=== PATIENT | male | born 1955 | race Caucasian/White ===

== ENCOUNTER 2018-08-08 12:58 | Outpatient (CLI) | payer BC ==
--- NOTE | 2018-08-08 14:45 | RAD ---
CHEST PA AND LATERAL: History: 63-year-old male with history of follow up pneumonia, patient had pneumonia in June. Comparison: 06-21-11 FINDINGS: Minimal right sided pleural thickening. Heart size is within normal limits. The lungs are clear. NO p neumonia, edema, or pleural effusion. IMPRESSION: Minimal right sided pleural thickening. No evidence of pneumonia or other acute process. Stable from 06-21-11. POS: [facility]
== END 2018-08-08 12:59 | disposition home or self-care (01) ==
LOC: BICRAD 12:58
PROVIDERS: ATTEND Internal Medicine
DX: J18.9 Pneumonia, unspecified organism (principal); J92.9 Pleural plaque without asbestos; Z12.5 Encounter for screening for malignant neoplasm of prostate; I10 Essential (primary) hypertension; E78.5 Hyperlipidemia, unspecified; Z79.899 Other long term (current) drug therapy
CPT/HCPCS: 36415; 71046; 80053; 80061; 81003; 84443; 85025; G0103

== ENCOUNTER 2023-09-11 11:26 | Inpatient (IN) | payer BC, MEDICARE ==
[2023-09-11 12:10] LABS: #Eosinphils 0.2 thou/uL (0.0-0.7); #Monocytes 0.7 thou/uL (0.11-0.59); #Neutrophils 6.1 thou/uL (1.40-6.50); %Basophils 0.3 % (0.0-1.0); %Eosinophils 1.9 % (0.0-10.0); %Lymphocytes 9.7 % (21.0-51.0); %Monocytes 8.6 % (0.0-10.0); %Neutrophils 78.7 % (42.0-75.0); Hematocrit 24.7 % (42.0-52.0); Hemoglobin 7.6 g/dL (14.0-18.0); Mean Corpuscular HGB CONC 30.8 g/dL (32.0-36.0); Mean Corpuscular Hemoglobin 27.9 pg (27.0-31.0); Mean Corpuscular Volume 90.8 fl (78.0-98.0); Mean Platelet Volume 9.7 fL (7.4-10.4); Platelet Count 241 10x3/uL (130-400); RBC Distribution Width 16.6 % (11.5-14.5); Red Blood Cell (RBC) Count 2.72 mill/uL (4.70-6.10); White Blood Cell (WBC) Count 7.8 10x3/uL (4.8-10.8)
[2023-09-11 12:30] LABS: ALT (SGPT) 15 U/L (8-55); AST (SGOT) 25 U/L (5-34); Albumin 3.9 g/dL (3.4-4.8); Alkaline Phosphatase 185 U/L (40-110); Anion Gap 14 mmol/L (10-20); BUN (Urea Nitrogen) 18 mg/dL (8.4-25.7); Bilirubin, Total 1.3 mg/dL (0.2-1.2); Calc. Creatinine Clearance 0 mL/min (70-130); Calcium 8.9 mg/dL (7.8-10.44); Carbon Dioxide 25 mmol/L (23-31); Chloride 93 mmol/L (98-107); Estimated GFR 42; Globulin 3.2 g/dL (2.4-3.5); Glucose 183 mg/dL (80-115); Protein, Total 7.1 g/dL (5.8-8.1); Sodium 128 mmol/L (136-145); Troponin I Less than 0.010 ng/mL (< 0.028)
[2023-09-11] MEDS ORDERED: Acetaminophen 325 MG TAB PO PRN (14:05)
[2023-09-11] MEDS ORDERED: Furosemide 20 MG (2 mL) VIAL ONE (14:16)
[2023-09-11 15:48] LABS: Troponin I Less than 0.010 ng/mL (< 0.028)
[2023-09-11 23:15] LABS: Troponin I 0.025 ng/mL (< 0.028)
[2023-09-12 00:41] VITALS: BMI 42.9
[2023-09-12] MEDS: Furosemide 40 MG (4 mL) VIAL SLOW IVP SCH ×2 (05:15→15:02)
[2023-09-12 06:38] LABS: #Eosinphils 0.2 thou/uL (0.0-0.7); #Monocytes 0.8 thou/uL (0.11-0.59); #Neutrophils 6.1 thou/uL (1.40-6.50); %Basophils 0.4 % (0.0-1.0); %Lymphocytes 10.7 % (21.0-51.0); %Monocytes 10.2 % (0.0-10.0); Hematocrit 24.2 % (42.0-52.0); Hemoglobin 7.3 g/dL (14.0-18.0); Mean Corpuscular HGB CONC 30.2 g/dL (32.0-36.0); Mean Corpuscular Hemoglobin 26.9 pg (27.0-31.0); Mean Corpuscular Volume 89.3 fl (78.0-98.0); Mean Platelet Volume 9.6 fL (7.4-10.4); Platelet Count 276 10x3/uL (130-400); RBC Distribution Width 16.9 % (11.5-14.5); Red Blood Cell (RBC) Count 2.71 mill/uL (4.70-6.10); White Blood Cell (WBC) Count 8.1 10x3/uL (4.8-10.8)
[2023-09-12 06:58] LABS: Anion Gap 14 mmol/L (10-20); BUN (Urea Nitrogen) 17 mg/dL (8.4-25.7); Calc. Creatinine Clearance 88 mL/min (70-130); Calcium 9.2 mg/dL (7.8-10.44); Carbon Dioxide 29 mmol/L (23-31); Chloride 96 mmol/L (98-107); Estimated GFR 47; Glucose 123 mg/dL (80-115); Potassium 3.9 mmol/L (3.5-5.1); Sodium 135 mmol/L (136-145)
[2023-09-12] MEDS ORDERED: Spironolactone 25 MG TAB PO SCH (09:15)
[2023-09-12] MEDS: Empagliflozin 10 MG TAB PO SCH (10:19)
[2023-09-12] MEDS: Bisacodyl 5 MG TAB PO PRN (10:25)
[2023-09-12] MEDS ORDERED: Potassium Chloride 20 MEQ TAB PO SCH (10:45)
[2023-09-12 13:42] LABS: Iron 19 ug/dL (65-175); Iron Binding Capacity, Total 379 mcg/dL (261-462)
[2023-09-12] MEDS ORDERED: Iron Sucrose Complex 200 MG in Sodium Chloride 0.9% 100 ML IVPB SCH (19:00)
[2023-09-12] MEDS ORDERED: Iron, Sodium Ferric Gluconate 250 MG in Sodium Chloride 0.9% 250 ML 250 ML IVPB SCH ×2 (19:00→21:45)
[2023-09-12] MEDS ORDERED: diphenhydrAMINE 30 GM TUBE TOP PRN (19:13)
[2023-09-12] MEDS: Folic Acid 1 MG TAB PO SCH (20:13)
[2023-09-12] MEDS: Cyanocobalamin (Vitamin B-12) 1,000 MCG TAB PO SCH (20:13)
[2023-09-13] MEDS ORDERED: Furosemide 40 MG (4 mL) VIAL SLOW IVP SCH (07:45)
[2023-09-13 07:52] LABS: #Eosinphils 0.3 thou/uL (0.0-0.7); #Neutrophils 4.9 thou/uL (1.40-6.50); %Basophils 0.3 % (0.0-1.0); %Eosinophils 3.8 % (0.0-10.0); %Lymphocytes 11.5 % (21.0-51.0); %Monocytes 13.5 % (0.0-10.0); %Neutrophils 69.9 % (42.0-75.0); Hematocrit 25.1 % (42.0-52.0); Hemoglobin 7.8 g/dL (14.0-18.0); Mean Corpuscular HGB CONC 31.1 g/dL (32.0-36.0); Mean Corpuscular Hemoglobin 27.7 pg (27.0-31.0); Platelet Count 245 10x3/uL (130-400); RBC Distribution Width 16.8 % (11.5-14.5); Red Blood Cell (RBC) Count 2.82 mill/uL (4.70-6.10); White Blood Cell (WBC) Count 7.1 10x3/uL (4.8-10.8)
[2023-09-13 08:12] LABS: ALT (SGPT) 20 U/L (8-55); AST (SGOT) 59 U/L (5-34); Albumin 3.5 g/dL (3.4-4.8); Alkaline Phosphatase 159 U/L (40-110); Anion Gap 13 mmol/L (10-20); BUN (Urea Nitrogen) 16 mg/dL (8.4-25.7); Bilirubin, Total 1.3 mg/dL (0.2-1.2); Calc. Creatinine Clearance 90 mL/min (70-130); Carbon Dioxide 28 mmol/L (23-31); Chloride 98 mmol/L (98-107); Estimated GFR 49; Glucose 116 mg/dL (80-115); Potassium 3.5 mmol/L (3.5-5.1); Protein, Total 6.5 g/dL (5.8-8.1); Sodium 135 mmol/L (136-145)
[2023-09-13] MEDS: Spironolactone 25 MG TAB PO SCH (10:49)
[2023-09-13] MEDS: Metolazone 5 MG TAB PO SCH (10:50)
[2023-09-13] MEDS: Empagliflozin 10 MG TAB PO SCH (10:50)
[2023-09-13] MEDS: Furosemide 40 MG (4 mL) VIAL SLOW IVP SCH (14:02)
[2023-09-13] MEDS ORDERED: GoLYTELY 4,000 ml Bottle PO SCH (15:00)
[2023-09-13] MEDS: Cyanocobalamin (Vitamin B-12) 1,000 MCG TAB PO SCH (21:08)
[2023-09-13] MEDS: Folic Acid 1 MG TAB PO SCH (21:08)
[2023-09-14] MEDS: Furosemide 40 MG (4 mL) VIAL SLOW IVP SCH ×3 (04:24→13:11)
[2023-09-14] MEDS ORDERED: Potassium Chloride 20 MEQ TAB PO SCH (07:30)
[2023-09-14] MEDS ORDERED: PROPOFOL 20 ML ONE (08:41)
[2023-09-14] MEDS ORDERED: Ketamine In 0.9 % NaCl 50 MG/5 ML SYRINGE ONE (08:41)
[2023-09-14] MEDS ORDERED: PHENYLEPHRINE-NS 100 MCG/ML 10 ML SYRINGE ONE ×2 (08:49→09:05)
[2023-09-14] MEDS ORDERED: FLU VACC QS2023(65UP)/MF59C/PF 60 MCG/0.5 ML SYRINGE IM ONE (09:00)
[2023-09-14] MEDS ORDERED: Ondansetron HCl/PF 4 MG/2 ML Vial IVP PRN (09:40)
[2023-09-14] MEDS ORDERED: Promethazine HCl 25 MG/ML VIAL IM PRN (09:40)
[2023-09-14] MEDS: Metolazone 5 MG TAB PO SCH (10:33)
[2023-09-14] MEDS: Spironolactone 25 MG TAB PO SCH (10:33)
[2023-09-14] MEDS: Empagliflozin 10 MG TAB PO SCH (10:34)
[2023-09-14] MEDS ORDERED: Iron, Sodium Ferric Gluconate 250 MG in Sodium Chloride 0.9% 250 ML 250 ML IVPB SCH (11:00)
[2023-09-14 11:13] LABS: #Eosinphils 0.2 thou/uL (0.0-0.7); #Monocytes 0.7 thou/uL (0.11-0.59); #Neutrophils 4.1 thou/uL (1.40-6.50); %Basophils 0.4 % (0.0-1.0); %Eosinophils 3.9 % (0.0-10.0); %Monocytes 11.6 % (0.0-10.0); %Neutrophils 71.2 % (42.0-75.0); Hematocrit 27.4 % (42.0-52.0); Hemoglobin 8.5 g/dL (14.0-18.0); Mean Corpuscular Hemoglobin 27.6 pg (27.0-31.0); Mean Platelet Volume 9.3 fL (7.4-10.4); Platelet Count 260 10x3/uL (130-400); RBC Distribution Width 16.9 % (11.5-14.5); Red Blood Cell (RBC) Count 3.08 mill/uL (4.70-6.10); White Blood Cell (WBC) Count 5.7 10x3/uL (4.8-10.8)
[2023-09-14 11:32] LABS: Anion Gap 14 mmol/L (10-20); BUN (Urea Nitrogen) 14 mg/dL (8.4-25.7); Calc. Creatinine Clearance 89 mL/min (70-130); Calcium 9.4 mg/dL (7.8-10.44); Carbon Dioxide 32 mmol/L (23-31); Chloride 91 mmol/L (98-107); Estimated GFR 50; Glucose 154 mg/dL (80-115); Potassium 3.5 mmol/L (3.5-5.1); Sodium 133 mmol/L (136-145)
[2023-09-14 11:34] LABS: Magnesium 1.9 mg/dL (1.6-2.6)
[2023-09-14] MEDS: Potassium Chloride 20 MEQ TAB PO SCH ×2 (12:07→17:05)
[2023-09-14] MEDS: Thiamine 100 MG TAB PO SCH (20:01)
[2023-09-14] MEDS: Multivit, Therapeutic 1 TAB PO SCH (20:01)
[2023-09-14] MEDS: Folic Acid 1 MG TAB PO SCH (20:01)
[2023-09-14] MEDS: Cyanocobalamin (Vitamin B-12) 1,000 MCG TAB PO SCH (20:12)
[2023-09-15 04:44] LABS: #Eosinphils 0.3 thou/uL (0.0-0.7); #Monocytes 0.9 thou/uL (0.11-0.59); #Neutrophils 4.4 thou/uL (1.40-6.50); %Basophils 0.3 % (0.0-1.0); %Eosinophils 4.3 % (0.0-10.0); %Lymphocytes 13.2 % (21.0-51.0); %Monocytes 13.3 % (0.0-10.0); Hematocrit 26.2 % (42.0-52.0); Hemoglobin 8.2 g/dL (14.0-18.0); Mean Corpuscular HGB CONC 31.3 g/dL (32.0-36.0); Mean Corpuscular Hemoglobin 27.7 pg (27.0-31.0); Mean Corpuscular Volume 88.5 fl (78.0-98.0); Mean Platelet Volume 9.2 fL (7.4-10.4); Platelet Count 273 10x3/uL (130-400); RBC Distribution Width 17.3 % (11.5-14.5); Red Blood Cell (RBC) Count 2.96 mill/uL (4.70-6.10); White Blood Cell (WBC) Count 6.5 10x3/uL (4.8-10.8)
[2023-09-15] MEDS: Furosemide 40 MG (4 mL) VIAL SLOW IVP SCH ×2 (04:58→15:50)
[2023-09-15 05:07] LABS: ALT (SGPT) 20 U/L (8-55); AST (SGOT) 42 U/L (5-34); Albumin 3.5 g/dL (3.4-4.8); Alkaline Phosphatase 158 U/L (40-110); Anion Gap 14 mmol/L (10-20); BUN (Urea Nitrogen) 17 mg/dL (8.4-25.7); Calc. Creatinine Clearance 80 mL/min (70-130); Calcium 9.4 mg/dL (7.8-10.44); Carbon Dioxide 32 mmol/L (23-31); Chloride 90 mmol/L (98-107); Estimated GFR 45; Glucose 116 mg/dL (80-115); Potassium 3.4 mmol/L (3.5-5.1); Protein, Total 6.5 g/dL (5.8-8.1); Sodium 133 mmol/L (136-145)
[2023-09-15] MEDS ORDERED: FLU VACC QS2023(65UP)/MF59C/PF 60 MCG/0.5 ML SYRINGE IM ONE (09:00)
[2023-09-15] MEDS: Potassium Chloride 20 MEQ TAB PO SCH ×3 (09:24→18:41)
[2023-09-15] MEDS: Empagliflozin 10 MG TAB PO SCH (09:24)
[2023-09-15] MEDS: Spironolactone 25 MG TAB PO SCH (09:24)
[2023-09-15] MEDS: Metolazone 5 MG TAB PO SCH (09:24)
[2023-09-15] MEDS: Cyanocobalamin (Vitamin B-12) 1,000 MCG TAB PO SCH (20:36)
[2023-09-15] MEDS: Thiamine 100 MG TAB PO SCH (20:36)
[2023-09-15] MEDS: Multivit, Therapeutic 1 TAB PO SCH (20:36)
[2023-09-15] MEDS: Folic Acid 1 MG TAB PO SCH (20:36)
[2023-09-16 04:56] LABS: #Eosinphils 0.3 thou/uL (0.0-0.7); #Neutrophils 5.2 thou/uL (1.40-6.50); %Basophils 0.3 % (0.0-1.0); %Eosinophils 3.7 % (0.0-10.0); %Lymphocytes 11.2 % (21.0-51.0); %Monocytes 13.4 % (0.0-10.0); %Neutrophils 70.6 % (42.0-75.0); Hematocrit 27.3 % (42.0-52.0); Hemoglobin 8.5 g/dL (14.0-18.0); Mean Corpuscular HGB CONC 31.1 g/dL (32.0-36.0); Mean Corpuscular Hemoglobin 27.8 pg (27.0-31.0); Mean Corpuscular Volume 89.2 fl (78.0-98.0); Mean Platelet Volume 9.3 fL (7.4-10.4); Platelet Count 301 10x3/uL (130-400); RBC Distribution Width 17.9 % (11.5-14.5); Red Blood Cell (RBC) Count 3.06 mill/uL (4.70-6.10); White Blood Cell (WBC) Count 7.3 10x3/uL (4.8-10.8)
[2023-09-16 05:21] LABS: Anion Gap 17 mmol/L (10-20); BUN (Urea Nitrogen) 24 mg/dL (8.4-25.7); Calc. Creatinine Clearance 65 mL/min (70-130); Calcium 10.4 mg/dL (7.8-10.44); Carbon Dioxide 34 mmol/L (23-31); Chloride 86 mmol/L (98-107); Estimated GFR 35; Glucose 121 mg/dL (80-115); Magnesium 1.8 mg/dL (1.6-2.6); Potassium 3.4 mmol/L (3.5-5.1); Sodium 134 mmol/L (136-145)
[2023-09-16] MEDS ORDERED: Sodium Chloride 0.9% 500 ML IV SCH (06:00)
[2023-09-16] MEDS: Apixaban 5 MG TAB PO SCH ×2 (10:26→21:50)
[2023-09-16] MEDS: Torsemide 20 MG TAB PO SCH (10:27)
[2023-09-16] MEDS: Potassium Chloride 20 MEQ TAB PO SCH ×2 (10:27→15:06)
[2023-09-16] MEDS: Spironolactone 25 MG TAB PO SCH (10:27)
[2023-09-16] MEDS: Empagliflozin 10 MG TAB PO SCH (10:27)
[2023-09-16] MEDS: Bisacodyl 5 MG TAB PO PRN (10:30)
[2023-09-16] MEDS ORDERED: Potassium Chloride 20 MEQ TAB PO SCH (15:00)
[2023-09-16] MEDS: Multivit, Therapeutic 1 TAB PO SCH (21:50)
[2023-09-16] MEDS: Folic Acid 1 MG TAB PO SCH (21:50)
[2023-09-16] MEDS: Cyanocobalamin (Vitamin B-12) 1,000 MCG TAB PO SCH (21:50)
[2023-09-16] MEDS: Thiamine 100 MG TAB PO SCH (21:51)
[2023-09-17 05:03] LABS: #Eosinphils 0.1 thou/uL (0.0-0.7); #Neutrophils 4.1 thou/uL (1.40-6.50); %Basophils 0.3 % (0.0-1.0); %Eosinophils 1.2 % (0.0-10.0); %Lymphocytes 12.6 % (21.0-51.0); %Monocytes 16.3 % (0.0-10.0); %Neutrophils 67.9 % (42.0-75.0); Hematocrit 25.9 % (42.0-52.0); Hemoglobin 8.3 g/dL (14.0-18.0); Mean Corpuscular Hemoglobin 28.9 pg (27.0-31.0); Mean Corpuscular Volume 90.2 fl (78.0-98.0); Mean Platelet Volume 9.3 fL (7.4-10.4); Platelet Count 255 10x3/uL (130-400); RBC Distribution Width 19.1 % (11.5-14.5); Red Blood Cell (RBC) Count 2.87 mill/uL (4.70-6.10)
[2023-09-17 05:57] LABS: Anion Gap 13 mmol/L (10-20); BUN (Urea Nitrogen) 26 mg/dL (8.4-25.7); Calc. Creatinine Clearance 64 mL/min (70-130); Calcium 10.3 mg/dL (7.8-10.44); Carbon Dioxide 33 mmol/L (23-31); Chloride 87 mmol/L (98-107); Estimated GFR 34; Glucose 118 mg/dL (80-115); Potassium 3.2 mmol/L (3.5-5.1); Sodium 130 mmol/L (136-145)
[2023-09-17 07:53] VITALS: BP 122/73; TEMP 98.9
[2023-09-17] MEDS: Apixaban 5 MG TAB PO SCH (07:54)
[2023-09-17] MEDS: Spironolactone 25 MG TAB PO SCH (07:54)
[2023-09-17] MEDS: Empagliflozin 10 MG TAB PO SCH (07:55)
[2023-09-17] MEDS: Torsemide 20 MG TAB PO SCH (07:55)
[2023-09-17] MEDS ORDERED: Potassium Chloride 20 MEQ TAB PO SCH ×2 (08:00→09:15)
[2023-09-17] MEDS: Bisacodyl 5 MG TAB PO PRN (09:18)
== END 2023-09-17 12:30 | disposition home or self-care (01) | DRG 291 ==
LOC: ERS 11:26 → ERHOLD 13:39 → 2NO 21:57
PROVIDERS: ADMIT Student in an Organized Health Care Education/Training Program; ATTEND Internal Medicine
PROC: 30233N1 Transfusion of Nonautologous Red Blood Cells into Peripheral Vein, Percutaneous Approach (ICD-10-PCS; 2023-09-12)
PROC: 0DB58ZX Excision of Esophagus, Via Natural or Artificial Opening Endoscopic, Diagnostic (ICD-10-PCS; principal; 2023-09-14)
PROC: 0DB68ZX Excision of Stomach, Via Natural or Artificial Opening Endoscopic, Diagnostic (ICD-10-PCS; 2023-09-14)
PROC: 0DBK8ZZ Excision of Ascending Colon, Via Natural or Artificial Opening Endoscopic (ICD-10-PCS; 2023-09-14)
PROC: 0DBL8ZZ Excision of Transverse Colon, Via Natural or Artificial Opening Endoscopic (ICD-10-PCS; 2023-09-14)
PROC: 3E033XZ Introduction of Vasopressor into Peripheral Vein, Percutaneous Approach (ICD-10-PCS; 2023-09-14)
DX: I13.0 Hypertensive heart and chronic kidney disease with heart failure and stage 1 through stage 4 chronic kidney disease, or unspecified chronic kidney disease (principal); I50.33 Acute on chronic diastolic (congestive) heart failure; E87.1 Hypo-osmolality and hyponatremia; N17.9 Acute kidney failure, unspecified; I48.19 Other persistent atrial fibrillation; Z68.41 Body mass index [BMI] 40.0-44.9, adult; Z96.611 Presence of right artificial shoulder joint; Z96.642 Presence of left artificial hip joint; N18.2 Chronic kidney disease, stage 2 (mild); D64.9 Anemia, unspecified; E66.01 Morbid (severe) obesity due to excess calories; D12.2 Benign neoplasm of ascending colon; D12.3 Benign neoplasm of transverse colon; K64.4 Residual hemorrhoidal skin tags; K64.8 Other hemorrhoids; K25.9 Gastric ulcer, unspecified as acute or chronic, without hemorrhage or perforation; D50.9 Iron deficiency anemia, unspecified; Z82.49 Family history of ischemic heart disease and other diseases of the circulatory system; Z79.899 Other long term (current) drug therapy
CPT/HCPCS: 36415; 36416; 36430; 71045; 76705; 80048; 80053; 82728; 83540; 83550; 83735; 83880; 84484; 85025; 85046; 86850; 86900; 86901; 88305; 88312; 88313; 93005; 93306; 93798; 96374; 97139; J1940; J2704; J2916; J3490; J7030; J7050; P9016

== ENCOUNTER 2023-09-30 16:19 | Emergency (ER) | payer MEDICARE ==
[~2023-09-30 16:19] MED LIST: Iopamidol-370 76% 500 ML MDV (1 ML CHARGE) ONE
[2023-09-30 17:05] LABS: #Monocytes 0.9 thou/uL (0.11-0.59); #Neutrophils 10.2 thou/uL (1.40-6.50); %Basophils 0.2 % (0.0-1.0); %Eosinophils 0.3 % (0.0-10.0); %Lymphocytes 5.3 % (21.0-51.0); %Monocytes 7.8 % (0.0-10.0); %Neutrophils 84.7 % (42.0-75.0); Hematocrit 30.7 % (42.0-52.0); Hemoglobin 9.9 g/dL (14.0-18.0); Mean Corpuscular HGB CONC 32.2 g/dL (32.0-36.0); Mean Corpuscular Hemoglobin 28.9 pg (27.0-31.0); Mean Corpuscular Volume 89.8 fl (78.0-98.0); Platelet Count 312 10x3/uL (130-400); RBC Distribution Width 19.1 % (11.5-14.5); Red Blood Cell (RBC) Count 3.42 mill/uL (4.70-6.10)
[2023-09-30] MEDS ORDERED: Ondansetron PF 4 MG/2 ML Vial ONE (17:16)
[2023-09-30] MEDS ORDERED: Morphine 4 MG/ML VIAL ONE (17:16)
[2023-09-30 17:34] LABS: ALT (SGPT) 19 U/L (8-55); AST (SGOT) 37 U/L (5-34); Alkaline Phosphatase 258 U/L (40-110); Anion Gap 13 mmol/L (10-20); BUN (Urea Nitrogen) 14 mg/dL (8.4-25.7); Bilirubin, Total 0.7 mg/dL (0.2-1.2); Calc. Creatinine Clearance 0 mL/min (70-130); Calcium 9.8 mg/dL (7.8-10.44); Carbon Dioxide 28 mmol/L (23-31); Chloride 93 mmol/L (98-107); Estimated GFR 75; Glucose 133 mg/dL (80-115); Lipase 21 U/L (8-78); Potassium 4.8 mmol/L (3.5-5.1); Sodium 129 mmol/L (136-145)
[2023-09-30] MEDS ORDERED: Lactulose 20 GM (30 mL) UDCUP ONE (19:38)
[2023-09-30] MEDS ORDERED: Polyethylene Glycol 3350 17 GM Packet ONE (19:42)
[2023-09-30] MEDS ORDERED: Magnesium Citrate 300 ML BOT ONE (19:43)
== END 2023-09-30 20:20 | disposition home or self-care (01) ==
LOC: ERS 16:19
DX: K59.00 Constipation, unspecified (principal); I11.0 Hypertensive heart disease with heart failure; I50.9 Heart failure, unspecified; I48.91 Unspecified atrial fibrillation; Z55.6 Problems related to health literacy; Z75.3 Unavailability and inaccessibility of health-care facilities
CPT/HCPCS: 36415; 74177; 80053; 83690; 85025; J2270; J2405